=== PATIENT | female | born 1940 | race Hispanic/Latino ===

== ENCOUNTER → 2018-04-08 | Outpatient (CLI) | payer OTHER | END | disposition home or self-care (01) | LOC: OIH 08:30 | PROVIDERS: ATTEND Family Medicine | DX: M41.84 Other forms of scoliosis, thoracic region (principal); M47.895 Other spondylosis, thoracolumbar region; M47.892 Other spondylosis, cervical region; J98.11 Atelectasis; I10 Essential (primary) hypertension | CPT/HCPCS: 71046; 72040; 72070 ==

== ENCOUNTER → 2018-05-11 | Outpatient (CLI) | payer OTHER | END | disposition home or self-care (01) | LOC: OIH 13:32 | PROVIDERS: ATTEND Family Medicine | DX: M25.561 Pain in right knee (principal) | CPT/HCPCS: 73562 ==

== ENCOUNTER → 2019-03-24 | Outpatient (CLI) | payer OTHER | END | disposition home or self-care (01) | LOC: OIH 10:59 | PROVIDERS: ATTEND Family Medicine | DX: Z01.818 Encounter for other preprocedural examination (principal); M47.815 Spondylosis without myelopathy or radiculopathy, thoracolumbar region | CPT/HCPCS: 71046 ==

== ENCOUNTER 2020-02-08 12:11 | Inpatient (IN) | payer OTHER ==
[~2020-02-08] VITALS: Ht 149.9 cm; Wt 64.8 kg
[2020-02-08 12:31] LABS: BASOPHILS % (AUTO) 0.4 % (0.0-5.0); EOSINOPHILS % (AUTO) 2.2 % (0.0-8.0); HEMATOCRIT 38.1 % (36-48); LYMPHOCYTES % (AUTO) 19.7 % (21.0-51.0); MEAN CORPUSCULAR HGB CONC 32.8 g/dL (32.0-36.0); MEAN CORPUSCULAR VOLUME 85.4 fL (79-99); MONOCYTES % (AUTO) 6.6 % (3.0-13.0); NEUTROPHILS % (AUTO) 70.1 % (40.0-77.0); PLATELET COUNT (AUTO) 254 K/uL (130-400); RED BLOOD CELL COUNT(AUTO) 4.46 MIL/uL (4.00-5.50); RED CELL DISTRIBUTION WIDTH 13.3 % (11.0-15.5); WHITE BLOOD COUNT (AUTO) 7.2 K/uL (4.8-10.8)
[2020-02-08 12:42] LABS: CREATININE 0.8 mg/dL (0.5-1.5); INR 0.88 (0.85-1.15); PARTIAL THROMBOPLASTIN TIME 25.9 SEC (26.3-35.5); POTASSIUM 4.1 mmol/L (3.5-5.1); PROTHROMBIN TIME 9.5 SEC (9.6-11.6)
[2020-02-08 12:48] LABS: ALBUMIN 3.8 g/dL (3.5-5.0); BILIRUBIN,TOTAL 0.6 mg/dL (0.2-1.0); TOTAL PROTEIN, SERUM 7.5 g/dL (6.0-8.3)
[2020-02-08] MEDS ORDERED: ASPIRIN 325 MG TABLET ONE (12:50)
[2020-02-08] MEDS ORDERED: LIDOCAINE HCL-MPF 1% 2ML VIAL IV PRN (15:45)
[2020-02-08] MEDS ORDERED: MAGNESIUM 2GM PREMIX 50ML 50 ML IV PRN (15:45)
[2020-02-08] MEDS ORDERED: NITROGLYCERIN 0.4 MG SL TAB SL PRN (15:45)
[2020-02-08] MEDS ORDERED: GLUCAGON 1MG KIT 1 MG ML IM PRN (15:45)
[2020-02-08] MEDS ORDERED: POTASSIUM CHLORIDE 20MEQ/100ML 100 ML IV PRN (15:45)
[2020-02-08] MEDS ORDERED: DEXTROSE 50%-WATER 50 ML DISP.SYRIN IV PRN (15:45)
[2020-02-08] MEDS ORDERED: MORPHINE SULFATE 2 MG/ML 1ML SYG IVP PRN (15:45)
[2020-02-08] MEDS ORDERED: POTASSIUM CHLORIDE 10% ELIXIR 20 MEQ/15 ML UDCUP PO PRN (15:45)
[2020-02-08] MEDS: INSULIN HUMULIN R 100 UNIT/ML 3ML SQ SCH ×2 (16:30→21:00)
[2020-02-08] MEDS: ISOSORBIDE MONO 30MG TAB SR PO SCH (17:30)
[2020-02-08 18:42] LABS: CREATINE KINASE, TOTAL 63 U/L (21-232); MYOGLOBIN 35 ng/mL (10-92); TROPONIN I < 0.04 ng/mL (0.00-0.06)
[2020-02-08] MEDS ORDERED: METOPROLOL TARTRATE 25 MG TAB ONE (20:05)
[2020-02-08] MEDS: METOPROLOL TARTRATE 25 MG TAB PO SCH (21:00)
[2020-02-09] VITALS (14 sets, daily range): BP systolic 96–190; BP diastolic 49–95
[2020-02-09 01:22] LABS: CREATINE KINASE, TOTAL 62 U/L (21-232); MYOGLOBIN 49 ng/mL (10-92); TROPONIN I < 0.04 ng/mL (0.00-0.06)
[2020-02-09] MEDS: INSULIN HUMULIN R 100 UNIT/ML 3ML SQ SCH ×4 (06:18→20:32)
[2020-02-09 07:33] LABS: BASOPHILS % (AUTO) 0.6 % (0.0-5.0); EOSINOPHILS % (AUTO) 2.4 % (0.0-8.0); HEMATOCRIT 41.3 % (36-48); LYMPHOCYTES % (AUTO) 17.1 % (21.0-51.0); MEAN CORPUSCULAR HEMOGLOBIN 27.4 pg (27.0-33.0); MEAN CORPUSCULAR HGB CONC 32.4 g/dL (32.0-36.0); MEAN CORPUSCULAR VOLUME 84.5 fL (79-99); MONOCYTES % (AUTO) 7.4 % (3.0-13.0); NEUTROPHILS % (AUTO) 71.4 % (40.0-77.0); PLATELET COUNT (AUTO) 253 K/uL (130-400); RED BLOOD CELL COUNT(AUTO) 4.89 MIL/uL (4.00-5.50); RED CELL DISTRIBUTION WIDTH 13.2 % (11.0-15.5); WHITE BLOOD COUNT (AUTO) 6.3 K/uL (4.8-10.8)
[2020-02-09 07:58] LABS: CREATINE KINASE, TOTAL 64 U/L (21-232); MYOGLOBIN 53 ng/mL (10-92); TROPONIN I < 0.04 ng/mL (0.00-0.06)
--- NOTE | 2020-02-09 08:00 | NUR ---
ASSESSMENT PT IS AAOX3 DENIES CP DENIES SOB, BREATHING PATTERN IS EVEN AND UNLABORED. DENIES NV, NO COMPLAINTS RESTING IN BED. NPO STATUS FOR [facility] TODAY. PT AWARE AND AGREES.
[2020-02-09 08:16] LABS: ALBUMIN 3.8 g/dL (3.5-5.0); BILIRUBIN,TOTAL 0.8 mg/dL (0.2-1.0); CREATININE 0.8 mg/dL (0.5-1.5); MAGNESIUM 2.1 mg/dL (1.80-2.40); PHOSPHORUS 3.7 mg/dL (2.5-4.9); POTASSIUM 5.1 mmol/L (3.5-5.1)
[2020-02-09] MEDS: ASPIRIN 81MG TAB.CHEW PO SCH (09:00)
[2020-02-09] MEDS: ISOSORBIDE MONO 30MG TAB SR PO SCH (09:15)
[2020-02-09] MEDS: METOPROLOL TARTRATE 25 MG TAB PO SCH ×2 (09:15→20:27)
--- NOTE | 2020-02-09 09:20 | NUR ---
DR VALLES ROUNDED SAW PATIENT, PLAN LHC LATER TODAY
--- NOTE | 2020-02-09 09:30 | NUR ---
METOPROLOL AND ISOSORBIDE GIVEN OKD WITH DR VALLES, ASA HELD THIS AM
[2020-02-09] MEDS ORDERED: SODIUM BICARB 50MEQ 50ML VIAL 50 ML ONE (12:11)
[2020-02-09] MEDS ORDERED: LIDOCAINE HCL 2% 20ML ONE (12:11)
[2020-02-09] MEDS ORDERED: NICARDIPINE HCL 25 MG/10 ML ML IV ONE (12:11)
[2020-02-09] MEDS ORDERED: HEPARIN SODIUM 1000UNIT/ML 10ML VIAL ONE (12:11)
[2020-02-09] MEDS ORDERED: NITROGLYCERIN 2 MG/VIAL VIAL IV ONE (12:11)
[2020-02-09] MEDS ORDERED: IOHEXOL-350 50ML VIAL IV ONE (12:12)
[2020-02-09] MEDS ORDERED: IOHEXOL-350 75 ML VIAL IV ONE (12:12)
--- NOTE | 2020-02-09 12:15 | NUR ---
DOWN TO MEDIA OPERATOR VIA BED WITH MEDIA OPERATOR STAFF
[2020-02-09] MEDS ORDERED: FENTANYL CITRATE PF 50 MCG/1 ML 2ML VIAL ONE (12:29)
[2020-02-09] MEDS ORDERED: MIDAZOLAM HCL 1 MG/ML 2ML VIAL ONE (12:29)
--- NOTE | 2020-02-09 14:00 | NUR ---
RETURN FROM CLERICAL MANAGER RIGHT WRIST SITE NOTED WITH TR BAND IN PLACE, NO OOZING NO HEMATOMA, ALL 5 DIGITS RIGHT HAND FULL ROM STATES SENSATION TO LIGHT TOUCH, CAPILLARY REFILL WNL. AIR REMOVAL PROTOCOL IN PLACE. TELE MONITOR APPLIED TO PATIENT, VS MACHINE PUT IN PLACE.
--- NOTE | 2020-02-09 14:13 | NUR ---
KEN CAMERON Spoke with patients daughter (Keily Khan [phone]). As per daughter patient lives at home with her. Before this admission she was independent with ADLs, and No home services or any DME reported. Daughter to assist with transport home at discharge. CM to follow up. Addendum: 02/09/20 at 1415 by RAVINDER SCHAEFER Amended: Links added.
--- NOTE | 2020-02-09 15:30 | NUR ---
TR BAND DEFLATED PER PROTOCOL NO OOZING NO HEMATOMA NOTED TO R WRIST SITE. DRESSING APPLIED TO SITE. DENIES PAIN.
--- NOTE | 2020-02-09 18:00 | NUR ---
STATUS RIGHT WRIST REMAINS WNL
[2020-02-09 22:36] LABS: APPEARANCE,URINE Clear (CLEAR); BILIRUBIN,URINE Negative (NEGATIVE); COLOR,URINE Yellow (YELLOW); GLUCOSE, URINE (UA) Negative (NEGATIVE); KETONES,URINE Trace mg/dL (NEGATIVE); LEUKOCYTE ESTERASE ,URINE Small (NEGATIVE); NITRATE,URINE Negative (NEGATIVE); OCCULT BLOOD,URINE Small (NEGATIVE); PROTEIN,URINE Negative (NEGATIVE)
[2020-02-09 22:57] LABS: BACTERIA,URINE Few /HPF (None Seen); MUCUS,URINE Moderate LPF (None Seen); SQUAMOUS EPITHELIAL CELL,UR Moderate /HPF (0-2)
[2020-02-10] VITALS (21 sets, daily range): BP systolic 95–161; BP diastolic 48–79
[2020-02-10 05:23] LABS: BASOPHILS % (AUTO) 0.8 % (0.0-5.0); EOSINOPHILS % (AUTO) 2.1 % (0.0-8.0); HEMATOCRIT 40.4 % (36-48); LYMPHOCYTES % (AUTO) 23.3 % (21.0-51.0); MEAN CORPUSCULAR HEMOGLOBIN 27.6 pg (27.0-33.0); MEAN CORPUSCULAR HGB CONC 32.4 g/dL (32.0-36.0); MEAN CORPUSCULAR VOLUME 85.2 fL (79-99); MONOCYTES % (AUTO) 8.4 % (3.0-13.0); NEUTROPHILS % (AUTO) 64.2 % (40.0-77.0); PLATELET COUNT (AUTO) 274 K/uL (130-400); RED BLOOD CELL COUNT(AUTO) 4.74 MIL/uL (4.00-5.50); RED CELL DISTRIBUTION WIDTH 13.5 % (11.0-15.5); WHITE BLOOD COUNT (AUTO) 6.6 K/uL (4.8-10.8)
[2020-02-10 05:35] LABS: INR 0.92 (0.85-1.15)
[2020-02-10 05:37] LABS: ALBUMIN 3.6 g/dL (3.5-5.0); BILIRUBIN,TOTAL 0.8 mg/dL (0.2-1.0); MAGNESIUM 2.7 mg/dL (1.80-2.40); PHOSPHORUS 3.9 mg/dL (2.5-4.9); TOTAL PROTEIN, SERUM 7.3 g/dL (6.0-8.3)
[2020-02-10] MEDS: INSULIN HUMULIN R 100 UNIT/ML 3ML SQ SCH ×3 (06:04→16:30)
--- NOTE | 2020-02-10 08:00 | NUR ---
ASSESSMENT PT IS AAOX3 DENIES CP DENIES SOB, BREATHING PATTERN IS EVEN AND UNLABORED. DENIES NV, NO COMPLAINTS RESTING SITTING UP AT BEDSIDE. AM PO METOPROLOL GIVEN WITH SMALL SIP OF WATER, NPO STATUS FOR [facility] TODAY.
[2020-02-10] MEDS: METOPROLOL TARTRATE 25 MG TAB PO SCH (08:04)
[2020-02-10] MEDS: ISOSORBIDE MONO 30MG TAB SR PO SCH (08:04)
[2020-02-10] MEDS: ASPIRIN 81MG TAB.CHEW PO SCH (08:04)
[2020-02-10] MEDS ORDERED: AMINOCAPROIC ACID 15,000 MG in SODIUM CHLORIDE 0.9% 500ML 420 ML IV PRN (10:00)
[2020-02-10] MEDS ORDERED: EPINEPHRINE 10 MG in SODIUM CHLORIDE 0.9% 240 ML IV PRN (10:00)
[2020-02-10] MEDS ORDERED: NOREPINEPHRINE BITARTRATE 8 MG in DEXTROSE 5%-WATER 250 ML IV PRN (10:00)
[2020-02-10] MEDS ORDERED: PAPAVERINE HCL 30 MG/ML 2ML VIAL ONE (10:32)
[2020-02-10] MEDS ORDERED: CEFAZOLIN SODIUM 1 GM VIAL ONE ×2 (10:32→17:12)
[2020-02-10] MEDS ORDERED: NITROGLYCERIN 50 MG/D5% WATER 1 BOT ONE (11:25)
[2020-02-10] MEDS ORDERED: CEFAZOLIN SODIUM 1 GM VIAL IVP PRN (13:00)
[2020-02-10] MEDS ORDERED: PROTAMINE SULFATE 10 MG/ML 25ML VIAL IV ONE (16:53)
[2020-02-10] MEDS ORDERED: AMINOCAPROIC ACID 250 MG/ML 20 ML VIAL ONE (16:53)
[2020-02-10] MEDS ORDERED: ESMOLOL HCL 10 MG/ML 10 ML VIAL ONE (16:53)
[2020-02-10] MEDS ORDERED: NOREPINEPHRINE BITARTRATE 1 MG/1 ML ML IV ONE (16:53)
[2020-02-10] MEDS ORDERED: SODIUM BICARB 50MEQ 50ML VIAL 150 ML ONE (16:53)
[2020-02-10] MEDS ORDERED: HEPARIN SODIUM 1000UNIT/ML 10ML VIAL ONE ×2 (16:53→17:18)
[2020-02-10] MEDS ORDERED: EPINEPHRINE 1 MG/ML AMPULE ONE (16:53)
[2020-02-10] MEDS ORDERED: LIDOCAINE PF 2% 5ML ABBOJECT ONE (16:53)
--- NOTE | 2020-02-10 16:53 | NUR ---
DOWN VIA BED TO OR WITH OR STAFF, TELE PACK REMOVED AND RETURNED TO MANAGER AIR
[2020-02-10] MEDS ORDERED: PROPOFOL 10 MG/ML 20ML VIAL IV ONE (16:54)
[2020-02-10] MEDS ORDERED: MIDAZOLAM HCL 1 MG/ML 2ML VIAL ONE (16:54)
[2020-02-10] MEDS ORDERED: ROCURONIUM 10MG/1ML SYR 10 MG/ML ML ONE (16:54)
[2020-02-10] MEDS ORDERED: FENTANYL CITRATE PF 50 MCG/1 ML 20ML VIAL IJ ONE (16:54)
[2020-02-10] MEDS ORDERED: KETAMINE 50MG/ML SYRINGE 50 MG/ML DISP.SYRIN IV ONE (16:55)
[2020-02-10 17:30] LABS: ABG BASE EXCESS -2.6 mmol/L (-2.0-3.0); ABG HCO3 21.7 mmol/L (21.0-28.0); ABG PCO2 36 mmHg (32-45)
[2020-02-10] MEDS ORDERED: DEXTROSE 50%-WATER 50 ML DISP.SYRIN IV PRN (19:00)
[2020-02-10] MEDS ORDERED: ACETAMINOPHEN 650 MG SUPPOSITORY RC PRN (19:00)
[2020-02-10] MEDS ORDERED: POTASSIUM PHOS 15 mMOL+NS250ML 250 ML IV PRN (19:00)
[2020-02-10] MEDS ORDERED: NITROGLYCERIN 50 MG/D5% WATER 250 BOT IV SCH (19:00)
[2020-02-10] MEDS ORDERED: ALBUMIN (HUMAN) 5% 250 ML IV PRN (19:00)
[2020-02-10] MEDS ORDERED: SODIUM CHLORIDE 0.9% 10 ML VIAL IVP PRN (19:00)
[2020-02-10] MEDS ORDERED: MORPHINE SULFATE 2 MG/ML 1ML SYG IV PRN (19:00)
[2020-02-10] MEDS ORDERED: AMINOCAPROIC ACID 15,000 MG in SODIUM CHLORIDE 0.9% 250 ML IV SCH (19:00)
[2020-02-10] MEDS ORDERED: ONDANSETRON HCL 4 MG/2 ML VIAL IV PRN (19:00)
[2020-02-10] MEDS ORDERED: SODIUM CHLORIDE 0.9% 1000ML 1,000 ML IV SCH (19:00)
[2020-02-10] MEDS ORDERED: PROPOFOL 1000 MG/100 ML 100 ML IV PRN (19:00)
[2020-02-10] MEDS ORDERED: SODIUM CHLORIDE 0.9% 500ML 500 ML IV SCH (19:00)
[2020-02-10] MEDS ORDERED: INSULIN REGULAR, HUMAN 3ML 100 UNIT in SODIUM CHLORIDE 0.9% 99 ML IV SCH ×2 (19:00)
[2020-02-10] MEDS ORDERED: ACETAMINOPHEN 325 MG TAB PO PRN (19:00)
[2020-02-10] MEDS ORDERED: EPINEPHRINE 2 MG in DEXTROSE 5%-WATER 250 ML IV PRN (19:00)
[2020-02-10] MEDS ORDERED: GLUCAGON 1MG KIT 1 MG ML IM PRN (19:00)
[2020-02-10] MEDS ORDERED: NOREPINEPHRINE 4MG/NS 250ML 250 ML IV PRN (19:00)
[2020-02-10 19:16] LABS: ABG BASE EXCESS -9.4 mmol/L (-2.0-3.0); ABG HCO3 16.4 mmol/L (21.0-28.0); ABG OXYGEN SATURATION 98.5 % (95.0-99.0); ABG PCO2 36 mmHg (32-45)
[2020-02-10] MEDS: POTASSIUM CHLORIDE 20MEQ/100ML 100 ML IV PRN ×4 (20:05→22:50)
[2020-02-10] MEDS: CALCIUM GLUCONATE 1 GM in SODIUM CHLORIDE 0.9% 50 ML IV PRN (20:05)
[2020-02-10 20:23] LABS: MEAN CORPUSCULAR HEMOGLOBIN 27.9 pg (27.0-33.0); MEAN CORPUSCULAR HGB CONC 32.9 g/dL (32.0-36.0); RED BLOOD CELL COUNT(AUTO) 4.12 MIL/uL (4.00-5.50); RED CELL DISTRIBUTION WIDTH 13.4 % (11.0-15.5); WHITE BLOOD COUNT (AUTO) 25.2 K/uL (4.8-10.8)
[2020-02-10 20:33] LABS: CREATININE 1.8 mg/dL (0.5-1.5); MAGNESIUM 1.6 mg/dL (1.80-2.40); PARTIAL THROMBOPLASTIN TIME 22.4 SEC (26.3-35.5); PHOSPHORUS 3.9 mg/dL (2.5-4.9); PROTHROMBIN TIME 10.8 SEC (9.6-11.6)
[2020-02-10 20:35] LABS: POTASSIUM 2.8 mmol/L (3.5-5.1)
[2020-02-10 20:42] LABS: ABG HCO3 26.3 mmol/L (21.0-28.0); ABG OXYGEN SATURATION 92.8 % (95.0-99.0); ABG PCO2 50 mmHg (32-45)
[2020-02-10] MEDS: MAGNESIUM 2GM PREMIX 50ML 50 ML IV PRN (20:58)
[2020-02-10 22:27] LABS: ABG BASE EXCESS -3.5 mmol/L (-2.0-3.0); ABG HCO3 21.8 mmol/L (21.0-28.0); ABG OXYGEN SATURATION 97.7 % (95.0-99.0); ABG PCO2 40 mmHg (32-45)
[2020-02-10] MEDS: SODIUM BICARB 50MEQ 50ML VIAL IV PRN ×2 (22:31→22:37)
[2020-02-10] MEDS ORDERED: ALBUMIN (HUMAN) 5% 250 ML IV ONE (22:43)
[2020-02-10] MEDS: CEFAZOLIN SODIUM 1 GM VIAL IV SCH (23:47)
[2020-02-11] VITALS (42 sets, daily range): BP systolic 94–225; BP diastolic 48–92
[2020-02-11 00:21] LABS: ABG BASE EXCESS 1.1 mmol/L (-2.0-3.0); ABG HCO3 25.8 mmol/L (21.0-28.0); ABG OXYGEN SATURATION 97.3 % (95.0-99.0); ABG PCO2 41 mmHg (32-45)
[2020-02-11] MEDS: POTASSIUM CHLORIDE 20MEQ/100ML 100 ML IV PRN ×3 (00:45→09:56)
[2020-02-11] MEDS: MORPHINE SULFATE 2 MG/ML 1ML SYG IV PRN ×3 (01:11→06:58)
[2020-02-11 03:06] LABS: ABG BASE EXCESS -3.3 mmol/L (-2.0-3.0); ABG HCO3 21.8 mmol/L (21.0-28.0); ABG PCO2 40 mmHg (32-45)
[2020-02-11] MEDS: SODIUM BICARB 50MEQ 50ML VIAL IV PRN ×2 (03:39→03:42)
[2020-02-11 04:33] LABS: HEMATOCRIT 30.9 % (36-48); MEAN CORPUSCULAR HEMOGLOBIN 27.7 pg (27.0-33.0); MEAN CORPUSCULAR HGB CONC 32.7 g/dL (32.0-36.0); MEAN CORPUSCULAR VOLUME 84.7 fL (79-99); RED BLOOD CELL COUNT(AUTO) 3.65 MIL/uL (4.00-5.50); RED CELL DISTRIBUTION WIDTH 13.5 % (11.0-15.5); WHITE BLOOD COUNT (AUTO) 17.6 K/uL (4.8-10.8)
[2020-02-11 04:46] LABS: INR 0.99 (0.85-1.15); PARTIAL THROMBOPLASTIN TIME 21.6 SEC (26.3-35.5); PROTHROMBIN TIME 10.7 SEC (9.6-11.6)
[2020-02-11 04:55] LABS: CREATININE 1.3 mg/dL (0.5-1.5); MAGNESIUM 1.9 mg/dL (1.80-2.40); PHOSPHORUS 1.5 mg/dL (2.5-4.9); POTASSIUM 3.8 mmol/L (3.5-5.1)
[2020-02-11 05:15] LABS: ABG BASE EXCESS 4.4 mmol/L (-2.0-3.0); ABG HCO3 28.5 mmol/L (21.0-28.0); ABG PCO2 40 mmHg (32-45)
[2020-02-11] MEDS: CALCIUM GLUCONATE 1 GM in SODIUM CHLORIDE 0.9% 50 ML IV PRN ×2 (06:14→09:57)
[2020-02-11] MEDS: MAGNESIUM 2GM PREMIX 50ML 50 ML IV PRN (06:20)
[2020-02-11 08:08] LABS: ABG BASE EXCESS 5.1 mmol/L (-2.0-3.0); ABG HCO3 28.4 mmol/L (21.0-28.0); ABG OXYGEN SATURATION 96.1 % (95.0-99.0); ABG PCO2 37 mmHg (32-45)
[2020-02-11] MEDS: FAMOTIDINE/PF 20 MG/2 ML VIAL IV SCH (08:45)
[2020-02-11] MEDS: CEFAZOLIN SODIUM 1 GM VIAL IV SCH ×2 (08:45→16:05)
[2020-02-11 09:49] LABS: ABG BASE EXCESS 4.9 mmol/L (-2.0-3.0); ABG HCO3 28.3 mmol/L (21.0-28.0); ABG OXYGEN SATURATION 96.4 % (95.0-99.0); ABG PCO2 37 mmHg (32-45)
--- NOTE | 2020-02-11 10:00 | NUR ---
pt. is being extubated.Will attempt to see and initiate Skilled Physical Therapy Evaluation this PM.Rachael HURD is aware of the plan. Addendum: 02/11/20 at 1042 by JEWELL SCHMIDT, PT PT Amended: Links added.
--- NOTE | 2020-02-11 10:10 | NUR ---
PT FULLY AWAKE, ABLE TO FOLLOW COMMANDS, NO NEURO DEFICIT NOTED. PT WITH STRONG BILATERAL HAND LENS CUTTER AND ABLE TO SUSTAIN HEADLIFT. PT TOLERATED WEANING FROM VENT. ABG WITHIN ORDERED PARAMETERS, PT WITH NIP OF -21. PT EXTUBATED PER CV PROTOCOL. TOLERATING WELL. INSTRUCTED ON DEEP BREATHING AND USE OF HEART PILLOW. NODS UNDERSTANDING. CONTINUE TO MONITOR PT
[2020-02-11 11:35] LABS: ABG HCO3 28.2 mmol/L (21.0-28.0); ABG OXYGEN SATURATION 93.4 % (95.0-99.0); ABG PCO2 41 mmHg (32-45)
[2020-02-11] MEDS: TRAMADOL HCL 50 MG TABLET PO PRN ×3 (11:43→20:59)
[2020-02-12] VITALS (46 sets, daily range): BP systolic 98–146; BP diastolic 48–74
[2020-02-12] MEDS: TRAMADOL HCL 50 MG TABLET PO PRN ×3 (03:11→19:42)
[2020-02-12 03:31] LABS: ABG BASE EXCESS 3.2 mmol/L (-2.0-3.0); ABG OXYGEN SATURATION 92.9 % (95.0-99.0); ABG PCO2 50 mmHg (32-45)
[2020-02-12 03:43] LABS: HEMATOCRIT 31.1 % (36-48); MEAN CORPUSCULAR HEMOGLOBIN 27.5 pg (27.0-33.0); MEAN CORPUSCULAR HGB CONC 30.9 g/dL (32.0-36.0); MEAN CORPUSCULAR VOLUME 89.1 fL (79-99); PLATELET COUNT (AUTO) 171 K/uL (130-400); RED BLOOD CELL COUNT(AUTO) 3.49 MIL/uL (4.00-5.50); RED CELL DISTRIBUTION WIDTH 14.6 % (11.0-15.5); WHITE BLOOD COUNT (AUTO) 15.5 K/uL (4.8-10.8)
[2020-02-12 04:07] LABS: POTASSIUM 4.3 mmol/L (3.5-5.1)
[2020-02-12] MEDS ORDERED: FUROSEMIDE 10 MG/ML 10ML VIAL IV SCH (08:00)
[2020-02-12] MEDS: FAMOTIDINE/PF 20 MG/2 ML VIAL IV SCH (08:26)
[2020-02-12] MEDS: FUROSEMIDE 100 MG in SODIUM CHLORIDE 0.9% 100 ML IV SCH (08:29)
[2020-02-12] MEDS ORDERED: METOPROLOL TARTRATE 25 MG TAB PO SCH (09:00)
[2020-02-12] MEDS: INSULIN HUMULIN R 100 UNIT/ML 3ML SQ SCH ×3 (11:10→21:00)
[2020-02-12] MEDS: ATORVASTATIN CALCIUM 40 MG TABLET PO SCH (19:42)
[2020-02-12] MEDS: METOPROLOL TARTRATE 25 MG TAB PO SCH (19:42)
[2020-02-12 19:53] LABS: CREATININE 1.2 mg/dL (0.5-1.5)
[2020-02-12] MEDS ORDERED: SODIUM CHLORIDE 0.9% 100 ML IV ONE (21:25)
[2020-02-12] MEDS ORDERED: FUROSEMIDE 10 MG/ML 10ML VIAL ONE (21:26)
[2020-02-13] VITALS (25 sets, daily range): BP systolic 94–139; BP diastolic 37–104
[2020-02-13 03:45] LABS: BASOPHILS % (AUTO) 0.3 % (0.0-5.0); EOSINOPHILS % (AUTO) 0.5 % (0.0-8.0); HEMATOCRIT 29.7 % (36-48); LYMPHOCYTES % (AUTO) 8.2 % (21.0-51.0); MEAN CORPUSCULAR VOLUME 90.3 fL (79-99); MONOCYTES % (AUTO) 6.9 % (3.0-13.0); NEUTROPHILS % (AUTO) 83.4 % (40.0-77.0); PLATELET COUNT (AUTO) 177 K/uL (130-400); RED BLOOD CELL COUNT(AUTO) 3.29 MIL/uL (4.00-5.50); RED CELL DISTRIBUTION WIDTH 14.3 % (11.0-15.5); WHITE BLOOD COUNT (AUTO) 14.7 K/uL (4.8-10.8)
[2020-02-13 03:58] LABS: CREATININE 1.3 mg/dL (0.5-1.5); POTASSIUM 3.7 mmol/L (3.5-5.1)
[2020-02-13] MEDS: POTASSIUM CHLORIDE 20 MEQ ERTAB PO PRN (04:17)
[2020-02-13 04:47] LABS: ABG BASE EXCESS 7.1 mmol/L (-2.0-3.0); ABG OXYGEN SATURATION 93.2 % (95.0-99.0); ABG PCO2 51 mmHg (32-45)
[2020-02-13] MEDS: TRAMADOL HCL 50 MG TABLET PO PRN (04:54)
[2020-02-13] MEDS: INSULIN HUMULIN R 100 UNIT/ML 3ML SQ SCH ×4 (06:34→21:00)
[2020-02-13] MEDS: FUROSEMIDE 100 MG in SODIUM CHLORIDE 0.9% 100 ML IV SCH (07:50)
[2020-02-13] MEDS: METOPROLOL TARTRATE 25 MG TAB PO SCH ×2 (08:23→21:00)
[2020-02-13] MEDS: FAMOTIDINE/PF 20 MG/2 ML VIAL IV SCH (08:23)
[2020-02-13] MEDS: ASPIRIN 81MG TAB.CHEW PO SCH (08:23)
[2020-02-13] MEDS: ATORVASTATIN CALCIUM 40 MG TABLET PO SCH (21:18)
[2020-02-14 03:53] VITALS: BP 121/57
[2020-02-14 05:11] LABS: HEMATOCRIT 29.2 % (36-48); MEAN CORPUSCULAR HEMOGLOBIN 27.9 pg (27.0-33.0); MEAN CORPUSCULAR HGB CONC 32.2 g/dL (32.0-36.0); MEAN CORPUSCULAR VOLUME 86.6 fL (79-99); RED BLOOD CELL COUNT(AUTO) 3.37 MIL/uL (4.00-5.50); RED CELL DISTRIBUTION WIDTH 13.2 % (11.0-15.5); WHITE BLOOD COUNT (AUTO) 10.5 K/uL (4.8-10.8)
[2020-02-14 05:34] LABS: ALBUMIN 2.8 g/dL (3.5-5.0); BILIRUBIN,DIRECT 0.3 mg/dL (0.0-0.3); BILIRUBIN,TOTAL 1.4 mg/dL (0.2-1.0); CREATININE 1.1 mg/dL (0.5-1.5); POTASSIUM 3.6 mmol/L (3.5-5.1); TOTAL PROTEIN, SERUM 6.2 g/dL (6.0-8.3)
[2020-02-14] MEDS: POTASSIUM CHLORIDE 20 MEQ ERTAB PO PRN ×2 (05:58→08:59)
[2020-02-14] MEDS: INSULIN HUMULIN R 100 UNIT/ML 3ML SQ SCH ×4 (06:02→20:46)
[2020-02-14 08:33] VITALS: BP 142/71
[2020-02-14] MEDS: ASPIRIN 81MG TAB.CHEW PO SCH (08:58)
[2020-02-14] MEDS: METOPROLOL TARTRATE 25 MG TAB PO SCH ×2 (08:59→20:46)
[2020-02-14] MEDS ORDERED: FUROSEMIDE 20 MG TABLET PO SCH (09:00)
[2020-02-14] MEDS: FAMOTIDINE 20MG TAB 20 MG TAB PO SCH (09:00)
[2020-02-14] MEDS: TRAMADOL HCL 50 MG TABLET PO PRN (12:44)
[2020-02-14 13:10] VITALS: BP 114/64
[2020-02-14 16:00] VITALS: BP 100/52
[2020-02-14] MEDS: ENOXAPARIN SODIUM 30 MG/0.3 ML SQ SCH (17:10)
[2020-02-14 19:00] VITALS: BP 96/57
[2020-02-14] MEDS: ATORVASTATIN CALCIUM 40 MG TABLET PO SCH (20:46)
[2020-02-15] VITALS: BP 128/70
[2020-02-15 04:00] VITALS: BP 125/69
[2020-02-15 04:44] LABS: HEMATOCRIT 30.4 % (36-48); MEAN CORPUSCULAR HEMOGLOBIN 27.7 pg (27.0-33.0); MEAN CORPUSCULAR HGB CONC 31.9 g/dL (32.0-36.0); MEAN CORPUSCULAR VOLUME 86.9 fL (79-99); RED BLOOD CELL COUNT(AUTO) 3.5 MIL/uL (4.00-5.50); WHITE BLOOD COUNT (AUTO) 7.9 K/uL (4.8-10.8)
[2020-02-15 04:58] LABS: POTASSIUM 4.2 mmol/L (3.5-5.1)
[2020-02-15] MEDS: TRAMADOL HCL 50 MG TABLET PO PRN ×2 (05:46→23:51)
[2020-02-15] MEDS: INSULIN HUMULIN R 100 UNIT/ML 3ML SQ SCH ×4 (07:30→20:54)
[2020-02-15 09:15] VITALS: BP 116/75
[2020-02-15] MEDS: FAMOTIDINE 20MG TAB 20 MG TAB PO SCH (09:30)
[2020-02-15] MEDS: METOPROLOL TARTRATE 25 MG TAB PO SCH ×2 (09:30→20:53)
[2020-02-15] MEDS: ASPIRIN 81MG TAB.CHEW PO SCH (09:30)
[2020-02-15] MEDS: ENOXAPARIN SODIUM 30 MG/0.3 ML SQ SCH (09:31)
[2020-02-15] MEDS ORDERED: METO-391 PO (10:10)
[2020-02-15] MEDS ORDERED: ATOR40TA69 PO (10:10)
[2020-02-15] MEDS ORDERED: ASPI-1005 PO (10:10)
[2020-02-15 12:00] VITALS: BP 124/66
[2020-02-15] MEDS: FUROSEMIDE 20 MG TABLET PO SCH ×2 (12:56→23:50)
[2020-02-15 16:00] VITALS: BP 144/80
[2020-02-15] MEDS: MAGNESIUM HYDROXIDE 30 ML/UDCUP PO SCH ×3 (17:48→23:50)
[2020-02-15] MEDS: DOCUSATE SODIUM 100 MG CAP PO SCH (17:48)
[2020-02-15 19:51] VITALS: BP 149/76
[2020-02-15] MEDS: ATORVASTATIN CALCIUM 40 MG TABLET PO SCH (20:53)
[2020-02-16 00:07] VITALS: BP 125/67
[2020-02-16 03:48] VITALS: BP 125/72
[2020-02-16] MEDS: MAGNESIUM HYDROXIDE 30 ML/UDCUP PO SCH ×3 (05:14→18:00)
[2020-02-16] MEDS: INSULIN HUMULIN R 100 UNIT/ML 3ML SQ SCH ×3 (05:36→16:11)
[2020-02-16 07:55] VITALS: BP 127/65
[2020-02-16] MEDS: DOCUSATE SODIUM 100 MG CAP PO SCH (09:00)
[2020-02-16] MEDS: FAMOTIDINE 20MG TAB 20 MG TAB PO SCH (09:09)
[2020-02-16] MEDS: ASPIRIN 81MG TAB.CHEW PO SCH (09:09)
[2020-02-16] MEDS: METOPROLOL TARTRATE 25 MG TAB PO SCH (09:10)
[2020-02-16] MEDS: ENOXAPARIN SODIUM 30 MG/0.3 ML SQ SCH (09:18)
[2020-02-16 12:11] VITALS: BP 125/56
[2020-02-16] MEDS ORDERED: FURO20TA4 PO (12:19)
[2020-02-16] MEDS: FUROSEMIDE 20 MG TABLET PO SCH (12:39)
--- NOTE | 2020-02-16 13:09 | NUR ---
HOME TO FOLLOW UP WITH PMD FOR HOME HEALTH IF NEEDED CALL TO DR. LARA, APPOINTMENT FOR TOMORROW [id number]. ADVISED PT FAMILY AND VICKEY SHEPARD, FAXED INFO TO [phone]. Addendum: 02/16/20 at 1311 by SLAVA ARMSTRONG RN CM Amended: Links added.
[2020-02-16 16:00] VITALS: BP 118/67
--- NOTE | 2020-02-16 18:00 | NUR ---
HL REMOVED, CATHETER INTACT. DISCHARGE INSTRUCTIONS GIVEN TO PT. AND PT.'S DAUGHTER AT BEDSIDE, VERBALIZED MUTUAL UNDERSTANDING.
== END 2020-02-16 12:25 | disposition home or self-care (01) | DRG 233 ==
LOC: EDH 12:11 → OBSVTOIN 15:48 → UNDOADMOB 15:48 → INTOOBSV 15:48 → EDHIP 15:48 → 4DH 02-09 01:00 → EDHIP 02-09 01:00 → 4DH 02-10 19:00 → 2CH 02-10 19:00 → 4CH 02-13 18:45 → 2CH 02-13 18:45
PROVIDERS: ADMIT Internal Medicine Critical Care Medicine; ATTEND Internal Medicine Critical Care Medicine
PROC: 4A023N7 Measurement of Cardiac Sampling and Pressure, Left Heart, Percutaneous Approach (ICD-10-PCS; 2020-02-09)
PROC: B2111ZZ Fluoroscopy of Multiple Coronary Arteries using Low Osmolar Contrast (ICD-10-PCS; 2020-02-09)
PROC: B2151ZZ Fluoroscopy of Left Heart using Low Osmolar Contrast (ICD-10-PCS; 2020-02-09)
PROC: 06BQ4ZZ Excision of Left Saphenous Vein, Percutaneous Endoscopic Approach (ICD-10-PCS; 2020-02-10)
PROC: 02100Z9 Bypass Coronary Artery, One Artery from Left Internal Mammary, Open Approach (ICD-10-PCS; principal; 2020-02-10 13:00)
PROC: 021009W Bypass Coronary Artery, One Artery from Aorta with Autologous Venous Tissue, Open Approach (ICD-10-PCS; 2020-02-10 13:00)
DX: I25.110 Atherosclerotic heart disease of native coronary artery with unstable angina pectoris (principal); I50.31 Acute diastolic (congestive) heart failure; I24.9 Acute ischemic heart disease, unspecified; N17.9 Acute kidney failure, unspecified; E78.00 Pure hypercholesterolemia, unspecified; E78.5 Hyperlipidemia, unspecified; I11.0 Hypertensive heart disease with heart failure; J98.4 Other disorders of lung; M81.0 Age-related osteoporosis without current pathological fracture; R13.10 Dysphagia, unspecified; E66.9 Obesity, unspecified; Z68.28 Body mass index [BMI] 28.0-28.9, adult; Z79.82 Long term (current) use of aspirin; Z79.83 Long term (current) use of bisphosphonates; Z79.899 Other long term (current) drug therapy; Z91.19 Patient's noncompliance with other medical treatment and regimen
CPT/HCPCS: 36415; 36600; 71045; 80048; 80053; 80061; 80076; 81001; 82435; 82550; 82803; 82947; 82948; 83605; 83690; 83735; 83874; 84100; 84132; 84295; 84484; 85018; 85025; 85027; 85347; 85610; 85730; 86850; 86900; 86901; 86923; 93005; 93458; 93880; 94002; 94003; 94010; 94150; 94760; 97039; 99156; 99157; A7048; G0378; J0171; J0690; J1644; J1650; J1815; J1940; J2001; J2250; J2405; J2440; J2704; J2720; J3010; J3475; J3480; J3490; J7030; J7040; P9045; Q9967

== ENCOUNTER 2020-11-03 21:18 | Emergency (ER) | payer MEDICARE ==
[~2020-11-03] VITALS: Ht 149.9 cm; Wt 64.0 kg
[~2020-11-03 21:18] MED LIST: ASPI-1005 PO; ATOR40TA69 PO; FURO20TA4 PO; METO-391 PO
[2020-11-03] MEDS ORDERED: HYDROCODONE/ACETAMINOPHEN 5/325 MG TAB PO ONE (22:00)
[2020-11-03] MEDS ORDERED: TRAM1TAB PO (22:11)
== END 2020-11-03 22:18 | disposition home or self-care (01) ==
LOC: EDH 21:18
DX: S80.01XA Contusion of right knee, initial encounter (principal); I10 Essential (primary) hypertension; Z96.651 Presence of right artificial knee joint; Z79.82 Long term (current) use of aspirin; Z79.899 Other long term (current) drug therapy; W01.0XXA Fall on same level from slipping, tripping and stumbling without subsequent striking against object, initial encounter; Y93.01 Activity, walking, marching and hiking; Y92.89 Other specified places as the place of occurrence of the external cause; Y99.8 Other external cause status
CPT/HCPCS: 73560

== ENCOUNTER 2021-02-21 08:37 | Emergency (ER) | payer MEDICARE ==
[~2021-02-21] VITALS: Ht 149.9 cm; Wt 64.4 kg
[~2021-02-21 08:37] MED LIST changes: +TRAM1TAB PO
[2021-02-21 08:57] VITALS: BP 180/85
[2021-02-21] MEDS ORDERED: DEXAMETHASONE SOD PHOSPHATE 4 MG/ML 1ML VIAL IM SCH (09:30)
[2021-02-21] MEDS ORDERED: ACETAMINOPHEN 500 MG TABLET PO ONE (09:30)
[2021-02-21 09:50] LABS: BASOPHILS % (AUTO) 0.5 % (0.0-5.0); EOSINOPHILS % (AUTO) 0.6 % (0.0-8.0); HEMATOCRIT 42.4 % (36-48); LYMPHOCYTES % (AUTO) 14.8 % (21.0-51.0); MEAN CORPUSCULAR HEMOGLOBIN 27.2 pg (27.0-33.0); MEAN CORPUSCULAR HGB CONC 32.1 g/dL (32.0-36.0); MEAN CORPUSCULAR VOLUME 84.8 fL (79-99); MONOCYTES % (AUTO) 5.5 % (3.0-13.0); PLATELET COUNT (AUTO) 267 K/uL (130-400); RED CELL DISTRIBUTION WIDTH 13.9 % (11.0-15.5); WHITE BLOOD COUNT (AUTO) 10.8 K/uL (4.8-10.8)
[2021-02-21 10:08] LABS: CREATININE 0.9 mg/dL (0.5-1.5)
[2021-02-21] MEDS ORDERED: CYCL10TA16 PO (10:42)
[2021-02-21] MEDS ORDERED: METH4TAB PO (10:42)
[2021-02-21] MEDS ORDERED: IBUP-2070 PO (10:42)
[2021-02-21] MEDS ORDERED: ACET1TAB25 PO (10:42)
== END 2021-02-21 10:51 | disposition home or self-care (01) ==
LOC: EDH 08:37
DX: M41.9 Scoliosis, unspecified (principal); M54.50 Low back pain, unspecified; E78.00 Pure hypercholesterolemia, unspecified; I10 Essential (primary) hypertension; I25.10 Atherosclerotic heart disease of native coronary artery without angina pectoris; Z79.1 Long term (current) use of non-steroidal anti-inflammatories (NSAID); Z79.52 Long term (current) use of systemic steroids; Z79.82 Long term (current) use of aspirin; Z79.899 Other long term (current) drug therapy; Z96.651 Presence of right artificial knee joint
CPT/HCPCS: 36415; 74176; 80048; 85025; 96372; 99284; J1100

== ENCOUNTER → 2021-03-20 | Outpatient (CLI) | payer MEDICARE ==
[~2021-03-20] MED LIST changes: +ACET1TAB25 PO; +CYCL10TA16 PO; +IBUP-2070 PO; +METH4TAB PO
== END | disposition home or self-care (01) ==
LOC: OIH 09:13
PROVIDERS: ATTEND Family Medicine
DX: J90 Pleural effusion, not elsewhere classified (principal); M51.35 Other intervertebral disc degeneration, thoracolumbar region
CPT/HCPCS: 71046

== ENCOUNTER 2022-04-28 08:22 | Emergency (ER) | payer MEDICARE ==
[~2022-04-28] VITALS: Ht 149.9 cm; Wt 65.8 kg
[~2022-04-28 08:22] MED LIST changes: +ACET-2079 PO; -ACET1TAB25 PO; -TRAM1TAB PO; +TRAM1TAB2 PO
[2022-04-28 08:28] VITALS: BP 175/87
[2022-04-28 09:16] LABS: BASOPHILS % (AUTO) 0.6 % (0.0-5.0); EOSINOPHILS % (AUTO) 1.3 % (0.0-8.0); HEMATOCRIT 38.2 % (36-48); LYMPHOCYTES % (AUTO) 17.7 % (21.0-51.0); MEAN CORPUSCULAR HEMOGLOBIN 28.3 pg (27.0-33.0); MEAN CORPUSCULAR VOLUME 85.7 fL (79-99); MONOCYTES % (AUTO) 6.7 % (3.0-13.0); NEUTROPHILS % (AUTO) 73.1 % (40.0-77.0); PLATELET COUNT (AUTO) 219 K/uL (130-400); RED BLOOD CELL COUNT(AUTO) 4.46 MIL/uL (4.00-5.50); RED CELL DISTRIBUTION WIDTH 14.3 % (11.0-15.5); WHITE BLOOD COUNT (AUTO) 6.7 K/uL (4.8-10.8)
[2022-04-28 09:25] LABS: CREATININE 0.8 mg/dL (0.5-1.5); POTASSIUM 4.7 mmol/L (3.5-5.1)
[2022-04-28 09:29] LABS: ALBUMIN 3.9 g/dL (3.5-5.0); TOTAL PROTEIN, SERUM 7.3 g/dL (6.0-8.3)
[2022-04-28 09:37] LABS: APPEARANCE,URINE CLEAR (CLEAR); BILIRUBIN,URINE NEGATIVE (NEGATIVE); COLOR,URINE COLORLESS (YELLOW); GLUCOSE, URINE (UA) NEGATIVE (NEGATIVE); KETONES,URINE NEGATIVE (NEGATIVE); LEUKOCYTE ESTERASE ,URINE 500 Leu/uL (NEGATIVE); NITRATE,URINE NEGATIVE (NEGATIVE); OCCULT BLOOD,URINE NEGATIVE (NEGATIVE); PROTEIN,URINE NEGATIVE (NEGATIVE); UROBILINOGEN,URINE 0.2 mg/dL (0.2-1.0)
[2022-04-28 09:40] LABS: BACTERIA,URINE RARE /HPF (None Seen); MUCUS,URINE RARE LPF (None Seen); SQUAMOUS EPITHELIAL CELL,UR RARE /HPF (0-2)
[2022-04-28] MEDS: KETOROLAC 15MG/ML VIAL (15MG/ML) IV STA (10:18)
[2022-04-28] MEDS ORDERED: DICL20GE TP (11:08)
== END 2022-04-28 11:25 | disposition home or self-care (01) ==
LOC: EDH 08:22
DX: M54.9 Dorsalgia, unspecified (principal); R07.89 Other chest pain; E78.00 Pure hypercholesterolemia, unspecified; I10 Essential (primary) hypertension; I25.10 Atherosclerotic heart disease of native coronary artery without angina pectoris; Z79.1 Long term (current) use of non-steroidal anti-inflammatories (NSAID); Z79.52 Long term (current) use of systemic steroids; Z79.82 Long term (current) use of aspirin; Z79.899 Other long term (current) drug therapy; Z95.1 Presence of aortocoronary bypass graft
CPT/HCPCS: 99285; 96374; 71045; 84484; 80053; 85025; 87088; 81001; 36415; 93005; J1885

== ENCOUNTER 2022-10-18 11:46 | Emergency (ER) | payer OTHER, MEDICARE ==
[~2022-10-18] VITALS: Ht 149.9 cm; Wt 64.4 kg
[~2022-10-18 11:46] MED LIST changes: +DICL20GE TP
[2022-10-18 12:16] LABS: APPEARANCE,URINE CLEAR (CLEAR); BILIRUBIN,URINE NEGATIVE (NEGATIVE); COLOR,URINE YELLOW (YELLOW); GLUCOSE, URINE (UA) NEGATIVE (NEGATIVE); KETONES,URINE NEGATIVE (NEGATIVE); LEUKOCYTE ESTERASE ,URINE NEGATIVE Leu/uL (NEGATIVE); NITRATE,URINE NEGATIVE (NEGATIVE); OCCULT BLOOD,URINE NEGATIVE (NEGATIVE); PROTEIN,URINE 20 mg/dL (NEGATIVE); UROBILINOGEN,URINE 0.2 mg/dL (0.2-1.0)
[2022-10-18 12:38] LABS: BASOPHILS % (AUTO) 1.1 % (0.0-5.0); EOSINOPHILS % (AUTO) 7.7 % (0.0-8.0); HEMATOCRIT 39.5 % (36-48); LYMPHOCYTES % (AUTO) 9.9 % (21.0-51.0); MEAN CORPUSCULAR HGB CONC 32.9 g/dL (32.0-36.0); MEAN CORPUSCULAR VOLUME 84.9 fL (79-99); MONOCYTES % (AUTO) 8.2 % (3.0-13.0); NEUTROPHILS % (AUTO) 70.6 % (40.0-77.0); PLATELET COUNT (AUTO) 268 K/uL (130-400); RED BLOOD CELL COUNT(AUTO) 4.65 MIL/uL (4.00-5.50); RED CELL DISTRIBUTION WIDTH 14.1 % (11.0-15.5); WHITE BLOOD COUNT (AUTO) 12.2 K/uL (4.8-10.8)
[2022-10-18 12:47] LABS: CREATININE 1.5 mg/dL (0.5-1.5); POTASSIUM 4.6 mmol/L (3.5-5.1)
[2022-10-18 12:52] LABS: ALBUMIN 3.8 g/dL (3.5-5.0); TOTAL PROTEIN, SERUM 7.5 g/dL (6.0-8.3)
[2022-10-18 13:06] LABS: BACTERIA,URINE RARE /HPF (None Seen); HYALINE CASTS, URINE 26-50 /LPF (0-1 /LPF); MUCUS,URINE RARE LPF (None Seen); SQUAMOUS EPITHELIAL CELL,UR RARE /HPF (0-2); TRANSITIONAL EPI CELLS,URINE RARE /HPF (None Seen)
[2022-10-18] MEDS ORDERED: MORPHINE 4 MG SYG IVP ONE (14:00)
[2022-10-18] MEDS ORDERED: ONDANSETRON 4MG INJ IVP ONE (14:00)
[2022-10-18] MEDS ORDERED: 0.9%NACL 1000ML 1,000 ML IV ONE (14:00)
[2022-10-18 15:34] VITALS: BP 98/53
[2022-10-18] MEDS ORDERED: CEPH500B PO (15:46)
[2022-10-18] MEDS ORDERED: LACT20PA6 PO (15:46)
== END 2022-10-18 16:41 | disposition home or self-care (01) ==
LOC: EDH 11:46
DX: K59.00 Constipation, unspecified (principal); K57.30 Diverticulosis of large intestine without perforation or abscess without bleeding; I10 Essential (primary) hypertension; E78.00 Pure hypercholesterolemia, unspecified; Z79.82 Long term (current) use of aspirin; Z79.899 Other long term (current) drug therapy; Z90.710 Acquired absence of both cervix and uterus; Z98.890 Other specified postprocedural states; Z95.1 Presence of aortocoronary bypass graft
CPT/HCPCS: 99285; 74176; 96374; 96361; 96375; 80053; 85025; 81001; 36415; J7030; J2405; J2270

== ENCOUNTER → 2023-08-06 | Outpatient (CLI) | payer MEDICARE ==
[~2023-08-06] MED LIST changes: +CEPH500B PO; +LACT20PA6 PO
== END | disposition home or self-care (01) ==
LOC: OIH 10:30
PROVIDERS: ATTEND Family Medicine
DX: M47.816 Spondylosis without myelopathy or radiculopathy, lumbar region (principal); M41.86 Other forms of scoliosis, lumbar region; M54.50 Low back pain, unspecified; M48.07 Spinal stenosis, lumbosacral region
CPT/HCPCS: 72100

== ENCOUNTER → 2024-04-13 | Outpatient (CLI) | payer MEDICARE ==
[2024-04-13] MEDS: REGADENOSON 0.4 MG/5 ML PF SYG IVP ONE (11:32)
--- NOTE | 2024-04-13 15:40 | HMCSR ---
APPROVED REPORT Height: 5 ft 0in Weight: 146 lbs TEST INDICATIONS CAD The imaging protocol used to acquire images was Rest Tc-99m/stress Tc-99m 1 day Consent: The procedure was explained and understood by the patient. Informerd consent was witnessed Teresa SMALL RN First, low dose rest was performed then high dose stress. RESTING DATA: The resting ekg shows: NSR Rest SPECT myocardial perfusion imaging was performed in supine position 52 minutes following the int ravenous injection of 12.9 mCi of Tc-99 Sestamibi. Time of rest injection: 08:35: Date: 04/13/2024 Time of rest imagin:27: Date: 04/13/2024 PHARMACOLOGIC STRESS: Pharmacologic stress test was performed by injecting regadenoson 0.4 mg IV push followed by the intra venous injection of 33 mCi of Tc-99 Sestamibi. Time of stress injection: 10:04: Date: 04/13/2024 Time of stress imagin:14: Date: 04/13/2024 Heart Rate at time of stress injection: 63 bpm. Gated Stress SPECT was performed 70 minutes after stress injection. The images were gated to evaluate regional wall motion and calculate left ventricular ejection fracti on. STRESS DETAILS Reason for Termination: Infusion complete Stress Symptoms: Dyspnea Max HR Achieved: 80 bpm % of APMHR Achieved: 58 Max Blood Pressure: 147/59 mmHg Stress ECG: NSR Conclusion No ischemia No infarct LV ejection fraction 70% Normal LV wall motion Normal LV size at rest and stress No increased lung uptake
== END | disposition home or self-care (01) ==
LOC: SHCH 08:15
PROVIDERS: ATTEND Internal Medicine Cardiovascular Disease
DX: I25.10 Atherosclerotic heart disease of native coronary artery without angina pectoris (principal); R06.09 Other forms of dyspnea
CPT/HCPCS: 78452; 93017; J2785; A9500 ×2

== ENCOUNTER 2024-09-07 08:54 | Emergency (ER) | payer MEDICARE ==
[~2024-09-07] VITALS: Ht 149.9 cm; Wt 65.8 kg
--- NOTE | 2024-09-07 09:54 | HMCIMG ---
Exam Type: CT pelvis without contrast Clinical Information: back pain, pelvic pain Findings: The visualized pelvic bowel loops are unremarkable. No free fluid or fluid collections of the pelvis are seen. The pelvic viscera are normal in CT appearance. The perirectal fat planes are clear. The visualized osseous elements are normal for the patient's age. IMPRESSION: NEGATIVE CT SCAN OF THE PELVIS WITHOUT CONTRAST.
--- NOTE | 2024-09-07 09:55 | HMCIMG ---
Exam Type: CT LUMBAR SPINE W/O CONTRAST Clinical Information: back pain, pelvic pain Comparison: None Findings: Straightening of the lumbar spine consistent with spasm, with reversal of normal lumbar lordosis as well. Diffuse spondylitic changes. Degenerative disc disease is noted with endplate degeneration at L3-4 and L5-S1. No acute fractures or dislocations. Dextroscoliosis. IMPRESSION: Degenerative changes. No acute pathology.
[2024-09-07 10:24] VITALS: BP 121/59; PULSE 58; RESP 18; TEMP 97.9; O2SAT 97
[2024-09-07] MEDS ORDERED: ACET-2743 PO (10:27)
[2024-09-07] MEDS ORDERED: MELO-108 PO (10:27)
--- NOTE | 2024-09-07 10:28 | ERN ---
General Chief Complaint: Lower Extremity Pain/Injury Stated Complaint: LEG PAIN Time Seen by MD: 08:57 History of Present Illness Initial Comments 83-year-old female presents for left lower back and left hip pain. Patient reports has been hurting for the last few days. Increases movement palpitation. It is mostly in the lower back, has joint area but it does radiate to the hip. No other symptoms. No neurologic symptoms. No urinary changes. She has never had this before. Denies trauma. Allergies: Coded Allergies: No Known Allergies (Verified Allergy, Unknown, 02/08/20) Home Meds Active Scripts Acetaminophen (Tylenol Extra Strength) 500 Mg Tablet, 1000 MG PO QID PRN for PAIN for 10 Days, #30 TAB Prov:KYAW MANCINI DO 09/07/24 Meloxicam (Meloxicam) 15 Mg Tablet, 15 MG PO DAILY PRN for PAIN for 30 Days, #30 TAB Prov:KYAW MANCINI DO 09/07/24 Lactulose (Kristalose) 20 Gm Packet, 20 GM PO HS for 7 Days, #7 PKT Prov:REJI GUTIERREZ V INDUSTRIAL PHARMACIST 10/18/22 Cephalexin Monohydrate (Keflex) 500 Mg Cap, 500 MG PO QID for 7 Days, #28 CAP Prov:REJI GUTIERREZ V INDUSTRIAL PHARMACIST 10/18/22 Diclofenac Sodium (Voltaren Arthritis Pain) 20 Gm Gel..gram., 20 GM TP BID for 7 Days, #30 TUBE Prov:AMY PROCTOR MD 04/28/22 Methylprednisolone (Medrol) 4 Mg Tablet, 4 MG PO AD for 6 Days, #1 TAB 0 Refills MEDROL DOSE PACK. INSTRUCTIONS PER BOX Prov:JONAH DIEGO MD 02/21/21 Ibuprofen (Ibuprofen) 600 Mg Tablet, 600 MG PO Q6H PRN for PAIN LEVEL 6 TO 10 for 7 Days, #30 TAB 0 Refills WITH FOOD Prov:JONAH DIEGO MD 02/21/21 Cyclobenzaprine HCl (Flexeril) 10 Mg Tab, 10 MG PO HSPRN PRN for PAIN LEVEL 5 TO 10 for 7 Days, #7 TAB 0 Refills DONT TAKE WHILE DRIVING OR OPERATING MACHINERY Prov:JONAH DIEGO MD 02/21/21 Acetaminophen with Codeine (Acetaminophen-Cod #3 Tablet) 1 Each Tablet, 1 EACH PO TID PRN for PAIN LEVEL 6 TO 10 for 3 Days, #10 TAB 0 Refills Prov:JONAH DIEGO MD 02/21/21 Tramadol HCl/Acetaminophen (Ultracet Tablet) 1 Each Tablet, 1 EACH PO QID, #30 TAB Prov:GARRETT BHANDARI 11/03/20 Furosemide (Furosemide) 20 Mg Tablet, 20 MG PO DAILY for 30 Days, #30 TAB Prov:EMILI VALLES NP 02/16/20 Metoprolol Succinate (Metoprolol Succinate) 50 Mg Tab.er.24h, 50 MG PO DAILY for 90 Days, #90 TAB 3 Refills Prov:GOVIND SALDANA MD 02/15/20 Atorvastatin Calcium (LIPITOR) 40 Mg Tablet, 40 MG PO HS for 90 Days, #90 TAB Prov:GOVIND SALDANA MD 02/15/20 Aspirin (ASPIRIN 81MG CHEW TAB) 81 Mg Tab.chew, 81 MG PO DAILY for 90 Days, #90 TAB.CHEW Prov:GOVIND SALDANA MD 02/15/20 Past Medical History Past Medical History: Hypertension Past Surgical History: CABG Surgical History Other: KNEE ROS Dictation CONSTITUTIONAL: No chills, no fever, no weakness, no diaphoresis, no malaise. HEAD/FACE: No signs of trauma. EENT: No eye pain, no blurred vision, no tearing, no double vision, no ear pain, no ear discharge, no nose pain, no nasal congestion, no throat pain, no throat swelling, no mouth pain. RESPIRATORY: No cough, no orthopnea, no SOB, no stridor, no wheezing. CARDIOVASCULAR: No chest pain, no edema, no palpitations, no syncope. GASTROINTESTINAL/ABDOMINAL: No abdominal pain, no constipation, no diarrhea, no nausea, no vomiting. GENITOURINARY: No abnormal discharge, no dysuria, no frequent urination, no hematuria. No complaints of pain in the genitals. MUSCULOSKELETAL: Left hip pain left back pain INTEGUMENTARY: No change in color, no change in hair/nails, no dryness, no lesion, no lumps, no rash. NEUROLOGICAL/PSYCH: No anxiety, not depressed, no emotional problem, no headache, no numbness, no pre-existing deficit, no history of seizures, no tremors, no weakness. HEMATOLOGIC/LYMPHATIC: Not anemic, no history of blood clots, no apparent bleeding, no bruising, glands not swollen. All Systems Negative, Except as Noted. Physical Exam Physical Exam Dictation VITAL SIGNS: Reviewed. GENERAL APPEARANCE: Alert, oriented x3, no acute distress, obese. HEAD AND FACE: Non-traumatic. EYES: PERRL, pink conjunctivas, eyelid no trauma, anterior chamber clear. EARS: Pinnas intact and no signs of trauma or erythema. Ear canals clear and no discharge. TMs no erythema. NOSE: No discharge, no bleeding. OROPHARYNX: Mouth normal, teeth no caries, tongue pink. Pharynx clear, no erythema. Tonsils no exudates, no abscesses noted. Mucous membrane moist. NECK: Supple, non-tender, no thyromegaly, no masses, no JVD, no bruits. BREAST: Deferred. CHEST: No tenderness, no crepitus, no paradoxical movement, no retractions. LUNGS: Clear, well-ventilated, symmetric, no rales, no wheezing, no rhonchi, no stridor, good breath sounds bilaterally. HEART: Regular rate, regular rhythm, no murmur, no gallops. VASCULAR: No peripheral edema. ABDOMEN: Soft, positive bowel sounds, nondistended, no guarding, nontender, no rebound, no masses no hepatomegaly, no splenomegaly, no Nava's sign, no hernias. RECTAL: Deferred. GENITAL: Deferred. NEUROLOGICAL: Normal speech, gross motor function intact, gross sensory function intact. MUSCULOSKELETAL: Neck nontender, full range of motion, back nontender, full range of motion. EXTREMITIES: Nontender, full range of motion. SKIN: Color pink, dry, no turgor, no rash, no lacerations, no abrasions, no contusions. LYMPHATICS: Deferred. MDM CC: Left lower back pain, midline: Pain, radiates to the left gluteus area Historian: Patient Comorbidities: Advanced age Limitations by social determinants of health: None Differential diagnosis: Sciatica, fracture, arthritis, MSK pain, other. Vital signs are stable Clinical exam is consistent with musculoskeletal type pain. There was no signs of neurovascular compromise. There is no red flags for back pain I did get imaging since there was some midline pain, she has a arthritis from L2-L4, also little bit in the hips. I suspect that this is what is causing the patient's pain. I do not see any life threats or neurovascular compromise at this time. Patient received IM Toradol, p.o. Murdock in the ER. Dose of steroids. We will DC with meloxicam Tylenol supportive care and recommend PCP follow up. ED Course Orders Procedure Category Date Status Time Ct Lumbar Spine W/O CT 09/07/24 Resulted Contrast 09:25 Ct Pelvis W/O Contrast CT 09/07/24 Resulted 09:25 Dexamethasone 4mg/Ml PHA 09/07/24 Complete 1ml Vial (Dexametha 10:30 Current Medications Medications (Trade) Dose Ordered Sig/Javier Route PRN Reason Start Time Stop Time Status Last Admin Dose Admin Dexamethasone Sodium Phosphate (dexaMETHasone 4MG/ML 1ML VIAL) 6 mg ONCE ONCE IM 09/07/24 10:30 09/07/24 10:31 Vital Signs Date Time Temp Pulse Resp B/P (MAP) Pulse Ox O2 Delivery O2 Flow Rate FiO2 09/07/24 10:24 97.9 58 18 121/59 97 Room Air* 0 21 09/07/24 08:56 97.7 50 16 128/58 97 0 DX & DISP Disposition: Discharge Departure Impression: Primary Impression: Acute back pain Additional Impression: Arthritis of lumbar spine Condition: Stable Scripts Acetaminophen (Tylenol Extra Strength) 500 Mg Tablet 1000 MG PO QID PRN for PAIN for 10 Days, #30 TAB Prov: KYAW MANCINI DO 09/07/24 Meloxicam (Meloxicam) 15 Mg Tablet 15 MG PO DAILY PRN for PAIN for 30 Days, #30 TAB Prov: KYAW MANCINI DO 09/07/24 Additional Instructions: Your symptoms in the CT scanner most consistent with arthritis type pain. You have degenerative disease in your lumbar spine from the levels L2 through L4. You also have a small amount of arthritis on your hips. I have prescribed meloxicam which is a nonsteroidal anti-inflammatory you can take this once per day for pain. You can also take 1000 mg of Tylenol up to 4 times a day as needed. Try Voltaren gel. You can also try a capsaicin based products such as creams or patches. These are [id number]-[id number]-aurainn. As we discussed, you may need to follow up with your primary doctor for further treatment and evaluation. This is likely a chronic disease. Please return to the emergency department as needed. Referrals: JIMI LARA MD (PCP) KYAW MANCINI DO September 07, 2024 10:28
[2024-09-07] MEDS: dexaMETHasone SOD PHOSPHATE 4 MG/ML 1ML VIAL IM ONE (10:31)
== END 2024-09-07 10:38 | disposition home or self-care (01) ==
LOC: EDH 08:54
DX: M54.50 Low back pain, unspecified (principal); M47.896 Other spondylosis, lumbar region; M47.816 Spondylosis without myelopathy or radiculopathy, lumbar region; I10 Essential (primary) hypertension; Z79.1 Long term (current) use of non-steroidal anti-inflammatories (NSAID); Z79.82 Long term (current) use of aspirin; Z79.899 Other long term (current) drug therapy; Z95.1 Presence of aortocoronary bypass graft
CPT/HCPCS: 99285; 72131; 72192; 96372; J1100